=== PATIENT | male | born 1965 | race Caucasian/White ===

== ENCOUNTER 2023-07-17 07:34 | Day surgery (SDC) | payer BC ==
[2023-07-17] MEDS ORDERED: Sodium Chloride 0.9(Preservative Free) 10 ML IJ ONE (07:35)
[2023-07-17] MEDS ORDERED: Depo-Medrol 40 MG/ML IM ONE (07:35)
[2023-07-17] MEDS ORDERED: Lactated Ringers 1,000 ML IV ONE (09:16)
[2023-07-17] MEDS ORDERED: DIPRIVAN 200 MG/20 ML IV ONE (09:31)
--- NOTE | 2023-07-17 10:30 | XRAY ---
Indication: Caudal KENNEY. Intraoperative fluoroscopy provided for 11 seconds. 2 digital spot image submitted for interpretation demonstrates caudal needle tip projecting mid sacrum. Small amount of contrast injected for needle placement. Correlate with intraoperative findings/report.
--- NOTE | 2023-07-17 12:07 | XRAY ---
11 seconds of fluoroscopy was used in surgery for a caudal KENNEY.
== END 2023-07-17 10:00 | disposition home or self-care (01) ==
LOC: SDC-PAIN 07:34
PROVIDERS: ATTEND Psychiatry & Neurology Pain Medicine
DX: M54.16 Radiculopathy, lumbar region (principal); E11.9 Type 2 diabetes mellitus without complications
CPT/HCPCS: 62323; 72220; 77003; 82947; J1010; J2704; Q9966

== ENCOUNTER 2024-02-12 11:36 | Day surgery (SDC) | payer BC ==
[2024-02-12] MEDS ORDERED: Sodium Chloride 0.9(Preservative Free) 10 ML IJ ONE (11:37)
[2024-02-12] MEDS ORDERED: Depo-Medrol 40 MG/ML IM ONE (11:37)
[2024-02-12] MEDS ORDERED: DIPRIVAN 200 MG/20 ML IV ONE (14:21)
--- NOTE | 2024-02-12 16:57 | XRAY ---
Indication: Caudal KENNEY. Intraoperative fluoroscopy provided for 11 seconds. 2 digital spot image submitted for interpretation demonstrates caudal needle tip projecting mid sacrum. Small amount of contrast injected for needle tip placement. Correlate with intraoperative findings/report.
--- NOTE | 2024-02-12 17:05 | XRAY ---
11 seconds of fluoroscopy was used in surgery for a caudal KENNEY.
== END 2024-02-12 15:00 | disposition home or self-care (01) ==
LOC: SDC-PAIN 11:36
PROVIDERS: ATTEND Psychiatry & Neurology Pain Medicine
DX: M54.16 Radiculopathy, lumbar region (principal); E11.9 Type 2 diabetes mellitus without complications
CPT/HCPCS: 72220; 77003; 82947; J2704

== ENCOUNTER 2024-09-23 07:27 | Day surgery (SDC) | payer SELFPAY ==
[2024-09-23] MEDS ORDERED: XYLOCAINE 1% HCL 20 ML MDV IJ ONE (07:28)
[2024-09-23] MEDS ORDERED: propofoL IV ONE (09:38)
[2024-09-23] MEDS ORDERED: Lactated Ringers 1,000 ML IV ONE ×2 (10:08→10:58)
--- NOTE | 2024-09-23 11:35 | XRAY ---
Indication: Left piriformis injection. Intraoperative fluoroscopy provided for 24 seconds. 3 digital spot image submitted for interpretation demonstrates posterior needle tip projecting over left piriformis. Small amount of contrast injected for needle tip placement. Correlate with intraoperative findings/report.
--- NOTE | 2024-09-23 11:48 | XRAY ---
24 seconds of fluoroscopy was used in surgery for a left piriformis injection.
== END 2024-09-23 10:06 | disposition home or self-care (01) ==
LOC: SDC-PAIN 07:27
PROVIDERS: ATTEND Psychiatry & Neurology Pain Medicine
DX: M79.18 Myalgia, other site (principal); E11.9 Type 2 diabetes mellitus without complications